=== PATIENT | female | born 1995 | race Asian ===

== ENCOUNTER 2021-04-06 16:36 | Emergency (ER) | payer BC ==
[~2021-04-06] VITALS: Ht 157.5 cm; Wt 68.2 kg
[2021-04-06 17:19] VITALS: BP 102/64
[2021-04-06] MEDS ORDERED: ondansetron 4mg rapidly disintigrating tab PO ONE (17:20)
[2021-04-06] MEDS ORDERED: DEXA6TAB6 PO (18:50)
[2021-04-06] MEDS ORDERED: ONDA4TAB6 PO (18:50)
[2021-04-06] MEDS ORDERED: AZIT500T PO (18:50)
== END 2021-04-06 18:55 | disposition home or self-care (01) ==
LOC: ER 16:36
DX: U07.1 COVID-19 (principal); J12.82 Pneumonia due to coronavirus disease 2019; R11.0 Nausea; R53.1 Weakness; R19.7 Diarrhea, unspecified; Z79.2 Long term (current) use of antibiotics; Z79.899 Other long term (current) drug therapy
CPT/HCPCS: 71045; 99283

== ENCOUNTER 2025-02-04 15:44 | Emergency (ER) | payer BC, OTHER ==
[~2025-02-04] VITALS: Ht 157.5 cm; Wt 71.4 kg
[~2025-02-04 15:44] MED LIST: DEXA6TAB6 PO; ONDA4TAB6 PO
[2025-02-04 16:16] VITALS: BP 109/70; PULSE 110; O2SAT 100
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
[2025-02-04] MEDS ORDERED: HYDR-3965 PO (20:27)
[2025-02-04] MEDS ORDERED: ONDA-245 PO (20:27)
[2025-02-04] MEDS ORDERED: CYCL-1 PO (20:27)
[2025-02-04 20:41] VITALS: RESP 16
[2025-02-04] MEDS: ondansetron 4mg rapidly disintigrating tab PO ONE (20:41)
[2025-02-04] MEDS: ibuprofen tablet 400 MG TABLET PO ONE (20:41)
[2025-02-04] MEDS: HYDROcodone/acetaminophen 5mg/325mg tablet PO ONE (20:41)
[2025-02-04 21:15] VITALS: TEMP 97.9
== END 2025-02-04 21:47 | disposition home or self-care (01) ==
LOC: ER 15:44
DX: M54.2 Cervicalgia (principal); M54.50 Low back pain, unspecified; V89.2XXA Person injured in unspecified motor-vehicle accident, traffic, initial encounter; Y93.89 Activity, other specified; Y92.410 Unspecified street and highway as the place of occurrence of the external cause; Y99.8 Other external cause status
CPT/HCPCS: 99284

== ENCOUNTER 2025-02-08 15:31 | Emergency (ER) | payer BC, OTHER ==
[~2025-02-08] VITALS: Ht 157.5 cm; Wt 71.4 kg
[~2025-02-08 15:31] MED LIST changes: +CYCL-1 PO; +HYDR-3965 PO; +ONDA-245 PO
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
[2025-02-08] MEDS ORDERED: IBUP-864 PO (17:03)
[2025-02-08] MEDS ORDERED: LIDO700A47 TOP (17:03)
[2025-02-08] MEDS ORDERED: ONDA-243 PO (17:03)
[2025-02-08 17:19] VITALS: BP 122/85; PULSE 66; TEMP 99.6; O2SAT 98
[2025-02-08 17:32] VITALS: RESP 19
[2025-02-08] MEDS: ketorolac trometh 30MG/ML vial 30 MG/ML VIAL IM ONE (17:32)
== END 2025-02-08 17:45 | disposition home or self-care (01) ==
LOC: ER 15:32
DX: S06.0X0A Concussion without loss of consciousness, initial encounter (principal); R51.9 Headache, unspecified; Z79.899 Other long term (current) drug therapy; V49.9XXA Car occupant (driver) (passenger) injured in unspecified traffic accident, initial encounter; Y93.89 Activity, other specified; Y92.89 Other specified places as the place of occurrence of the external cause; Y99.8 Other external cause status
CPT/HCPCS: 96372; 99283; J1885